=== PATIENT | female | born 1985 | race Caucasian/White ===

== ENCOUNTER 2017-06-07 03:33 | Emergency (ER) | payer MEDICAID | END 2017-06-07 04:15 | disposition left against medical advice (07) | LOC: ER 04:05 | DX: Z53.21 Procedure and treatment not carried out due to patient leaving prior to being seen by health care provider (principal) ==

== ENCOUNTER 2018-04-20 21:13 | Emergency (ER) | payer MEDICAID ==
[~2018-04-20] VITALS: Ht 165.1 cm; Wt 53.0 kg
[2018-04-20 22:54] VITALS: BP 125/85
== END 2018-04-21 01:42 | disposition left against medical advice (07) ==
LOC: ER 23:52
DX: Z53.21 Procedure and treatment not carried out due to patient leaving prior to being seen by health care provider (principal)

== ENCOUNTER 2019-07-14 20:18 | Emergency (ER) | payer MEDICAID ==
[~2019-07-14] VITALS: Ht 165.1 cm; Wt 73.0 kg
[2019-07-15] MEDS ORDERED: CEFTRIAXONE SODIUM 250 MG/VIAL IM ONE (00:30)
[2019-07-15] MEDS ORDERED: AZITHROMYCIN 500 MG TABLET PO ONE (00:30)
[2019-07-15] MEDS ORDERED: LIDOCAINE HCL 1% 20ML VIAL (Pyxis) INJ INFIL ONE (00:30)
[2019-07-15 00:41] VITALS: BP 132/82
== END 2019-07-15 00:42 | disposition home or self-care (01) ==
LOC: ER 20:18
DX: Z20.2 Contact with and (suspected) exposure to infections with a predominantly sexual mode of transmission (principal); J45.909 Unspecified asthma, uncomplicated
CPT/HCPCS: 81025; 96372; 99283; J0696; J3490

== ENCOUNTER 2019-11-26 14:21 | Emergency (ER) | payer MEDICAID ==
[~2019-11-26] VITALS: Ht 165.1 cm; Wt 80.0 kg
[2019-11-26 14:27] VITALS: BP 118/87
[2019-11-26] MEDS ORDERED: ONDANSETRON 4MG ODT PO ONE (15:15)
[2019-11-26] MEDS ORDERED: ACETAMINOPHEN 325MG TABLET PO ONE (15:15)
== END 2019-11-26 17:15 | disposition home or self-care (01) ==
LOC: ER 14:21
DX: R51 Headache (principal); J45.909 Unspecified asthma, uncomplicated; Y08.89XA Assault by other specified means, initial encounter; Y93.9 Activity, unspecified; Y92.9 Unspecified place or not applicable
CPT/HCPCS: 70450; 70486; 81025; 93005; 99285; Q0162

== ENCOUNTER 2020-01-04 17:49 | Emergency (ER) | payer MEDICAID ==
[~2020-01-04] VITALS: Ht 170.2 cm; Wt 82.0 kg
[2020-01-04 17:51] VITALS: BP 127/88
[2020-01-04] MEDS ORDERED: MORPHINE SULFATE 4 MG/ML CPJ (NOT FOR IM USE) IV STA (18:05)
[2020-01-04] MEDS ORDERED: SODIUM CHLORIDE 0.9% 1,000 ML IV ONE (18:05)
[2020-01-04] MEDS ORDERED: ONDANSETRON HCL 4MG/2ML INJ IV STA (18:05)
[2020-01-04] MEDS ORDERED: TETANUS, DIPHTHERIA, PERTUSSIS VAC/PF 0.5ML (>7YR OLD) IM ONE (18:15)
[2020-01-04] MEDS ORDERED: BACITRACIN/POLYMYXIN B SULFATE OINT 15GM TOP ONE (19:15)
[2020-01-04] MEDS ORDERED: KETOROLAC 60MG/2ML VIAL IM ONE (19:15)
== END 2020-01-04 20:13 | disposition home or self-care (01) ==
LOC: ER 17:49
DX: S09.8XXA Other specified injuries of head, initial encounter (principal); S20.212A Contusion of left front wall of thorax, initial encounter; S50.312A Abrasion of left elbow, initial encounter; J45.909 Unspecified asthma, uncomplicated; F10.10 Alcohol abuse, uncomplicated; Y90.9 Presence of alcohol in blood, level not specified; V13.4XXA Pedal cycle driver injured in collision with car, pick-up truck or van in traffic accident, initial encounter; Y93.55 Activity, bike riding; Y92.488 Other paved roadways as the place of occurrence of the external cause
CPT/HCPCS: 29125; 70450; 71250; 72125; 73030; 73070; 73090; 90471; 90715; 96372; 99285; J1885; J7030

== ENCOUNTER 2020-01-13 17:25 | Emergency (ER) | payer MEDICAID ==
[~2020-01-13] VITALS: Ht 165.1 cm; Wt 68.0 kg
[2020-01-13 19:26] VITALS: BP 121/74
== END 2020-01-13 19:27 | disposition home or self-care (01) ==
LOC: ER 17:25
DX: S40.022A Contusion of left upper arm, initial encounter (principal); V03.90XA Pedestrian on foot injured in collision with car, pick-up truck or van, unspecified whether traffic or nontraffic accident, initial encounter; Y93.9 Activity, unspecified; Y92.9 Unspecified place or not applicable
CPT/HCPCS: 99281